=== PATIENT | female | born 1975 | race Caucasian/White ===

== ENCOUNTER 2019-02-10 12:16 | Outpatient (CLI) | payer OTHER ==
[~2019-02-10 12:16] MED LIST: CYAN10002 IM; FERR325T17 PO; LACT1CAP11 PO; MULT-26 PO; Multivitamins PO; ONDA8TAB12 PO; TRAM50TA2 PO; Vitamin B Complex PO; Vitamin D3; Zinc PO; [UNRECOGNIZED DRUG - OTHER]; [UNRECOGNIZED DRUG - OTHER] PO; [UNRECOGNIZED DRUG - OTHER] PO; folic acid PO; iron PO
== END 2019-02-10 23:59 | disposition home or self-care (01) ==
LOC: CFH 12:16
PROVIDERS: ATTEND Physician Assistant Surgical
DX: S83.095A Other dislocation of left patella, initial encounter (principal); M25.462 Effusion, left knee; X58.XXXA Exposure to other specified factors, initial encounter; Y93.89 Activity, other specified; Y92.89 Other specified places as the place of occurrence of the external cause; Y99.8 Other external cause status